=== PATIENT | male | born 1975 | race Caucasian/White ===

== ENCOUNTER 2021-09-02 01:49 | Emergency (ER) | payer BC, SELFPAY ==
[2021-09-02 03:28] LABS: #Eosinphils 0.2 thou/uL (0.0-0.7); #Lymphocytes 1.2 thou/uL (1.20-3.40); #Monocytes 0.5 thou/uL (0.11-0.59); #Neutrophils 3.4 thou/uL (1.40-6.50); %Basophils 0.6 % (0.0-1.0); %Eosinophils 3.3 % (0.0-10.0); %Lymphocytes 22.4 % (21.0-51.0); %Neutrophils 63.6 % (42.0-75.0); Hemoglobin 12.3 g/dL (14.0-18.0); Mean Corpuscular HGB CONC 34.2 g/dL (32.0-36.0); Mean Corpuscular Hemoglobin 29.8 pg (27.0-31.0); Mean Corpuscular Volume 87.2 fL (78.0-98.0); Mean Platelet Volume 8.8 fL (7.4-10.4); Platelet Count 340 thou/uL (130-400); Platelet Morphology Comment Appears Adequate; RBC Distribution Width 15.7 % (11.5-14.5); RBC Morphology Normal; Red Blood Cell (RBC) Count 4.11 mill/uL (4.70-6.10); White Blood Cell (WBC) Count 5.3 thou/uL (4.8-10.8)
[2021-09-02] MEDS ORDERED: Ketorolac Tromethamine 30 MG/ML VIAL ONE (05:29)
[2021-09-02 07:51] LABS: ALT (SGPT) 46 U/L (8-55); AST (SGOT) 33 U/L (5-34); Albumin 3.6 g/dL (3.5-5.0); Alkaline Phosphatase 69 U/L (40-110); Anion Gap 16 mmol/L (10-20); BUN (Urea Nitrogen) 14 mg/dL (8.9-20.6); Bilirubin, Total 0.2 mg/dL (0.2-1.2); Calc. Creatinine Clearance 0 mL/min (70-130); Calcium 8.7 mg/dL (7.8-10.44); Carbon Dioxide 20 mmol/L (22-29); Chloride 98 mmol/L (98-107); Globulin 3.6 g/dL (2.4-3.5); Glucose 300 mg/dL (70-105); Lipase 31 U/L (8-78); Potassium 4.6 mmol/L (3.5-5.1); Protein, Total 7.2 g/dL (6.0-8.3); Sodium 129 mmol/L (136-145)
[2021-09-02 17:07] LABS: SARS-CoV-2 PCR by NAA DETECTED (NotDetected)
== END 2021-09-02 08:31 | disposition home or self-care (01) ==
LOC: ERS 01:49
DX: U07.1 COVID-19 (principal); E11.65 Type 2 diabetes mellitus with hyperglycemia; I10 Essential (primary) hypertension; E78.5 Hyperlipidemia, unspecified
CPT/HCPCS: 36415; 36416; 71045; 80053; 83690; 84484; 85025; 93005; 96374; J1885; U0003; U0005

== ENCOUNTER 2021-09-08 12:53 | Emergency (ER) | payer SELFPAY ==
[2021-09-08 16:16] LABS: #Lymphocytes 0.9 thou/uL (1.20-3.40); #Monocytes 0.4 thou/uL (0.11-0.59); #Neutrophils 5.4 thou/uL (1.40-6.50); %Basophils 0.4 % (0.0-1.0); %Eosinophils 0.4 % (0.0-10.0); %Lymphocytes 12.8 % (21.0-51.0); %Monocytes 5.3 % (0.0-10.0); %Neutrophils 81.1 % (42.0-75.0); Hemoglobin 13.3 g/dL (14.0-18.0); Mean Corpuscular HGB CONC 33.8 g/dL (32.0-36.0); Mean Corpuscular Hemoglobin 29.4 pg (27.0-31.0); Mean Platelet Volume 6.6 fL (7.4-10.4); Platelet Count 260 thou/uL (130-400); RBC Distribution Width 13.9 % (11.5-14.5); Red Blood Cell (RBC) Count 4.52 mill/uL (4.70-6.10); White Blood Cell (WBC) Count 6.6 thou/uL (4.8-10.8)
[2021-09-08 16:48] LABS: ALT (SGPT) 39 U/L (8-55); AST (SGOT) 30 U/L (5-34); Albumin 3.9 g/dL (3.5-5.0); Alkaline Phosphatase 81 U/L (40-110); Anion Gap 17 mmol/L (10-20); BUN (Urea Nitrogen) 22 mg/dL (8.9-20.6); Bilirubin, Total 0.4 mg/dL (0.2-1.2); Calc. Creatinine Clearance 0 mL/min (70-130); Carbon Dioxide 22 mmol/L (22-29); Chloride 97 mmol/L (98-107); Globulin 3.3 g/dL (2.4-3.5); Glucose 302 mg/dL (70-105); Potassium 4.3 mmol/L (3.5-5.1); Protein, Total 7.2 g/dL (6.0-8.3); Sodium 132 mmol/L (136-145)
== END 2021-09-08 19:28 | disposition home or self-care (01) ==
LOC: ERS 12:53
DX: U07.1 COVID-19 (principal); J12.82 Pneumonia due to coronavirus disease 2019; E11.9 Type 2 diabetes mellitus without complications; I10 Essential (primary) hypertension; E78.5 Hyperlipidemia, unspecified; Z79.84 Long term (current) use of oral hypoglycemic drugs; Z79.899 Other long term (current) drug therapy
CPT/HCPCS: 36415; 71045; 80053; 84484; 85025; 85379; 93005

== ENCOUNTER 2022-04-13 20:15 | Inpatient (IN) | payer BC, OTHER ==
[~2022-04-13 20:15] MED LIST: Iopamidol-370 76% 500 ML 1 ML ONE
[2022-04-13 20:42] LABS: #Eosinphils 0.3 thou/uL (0.0-0.7); #Lymphocytes 0.7 thou/uL (1.20-3.40); #Monocytes 0.7 thou/uL (0.11-0.59); #Neutrophils 8.1 thou/uL (1.40-6.50); %Basophils 0.3 % (0.0-1.0); %Eosinophils 3.2 % (0.0-10.0); %Lymphocytes 7.2 % (21.0-51.0); %Monocytes 7.2 % (0.0-10.0); %Neutrophils 82.3 % (42.0-75.0); Hemoglobin 13.3 g/dL (14.0-18.0); Mean Corpuscular HGB CONC 34.5 g/dL (32.0-36.0); Mean Corpuscular Hemoglobin 28.9 pg (27.0-31.0); Mean Corpuscular Volume 83.8 fL (78.0-98.0); Mean Platelet Volume 7.2 fL (7.4-10.4); Platelet Count 268 thou/uL (130-400); RBC Distribution Width 13.4 % (11.5-14.5); Red Blood Cell (RBC) Count 4.61 mill/uL (4.70-6.10); White Blood Cell (WBC) Count 9.8 thou/uL (4.8-10.8)
[2022-04-13] MEDS ORDERED: Ketorolac Tromethamine 30 MG/ML VIAL ONE (20:46)
[2022-04-13] MEDS ORDERED: PROVENTIL INHALER 6.7 G (200 INHALATIONS) ONE (21:00)
[2022-04-13] MEDS ORDERED: Albuterol 200 PUFF (6.7GM INHALER) ONE (21:01)
[2022-04-13 21:04] LABS: ALT (SGPT) 29 U/L (8-55); AST (SGOT) 25 U/L (5-34); Albumin 4.3 g/dL (3.5-5.0); Alkaline Phosphatase 85 U/L (40-110); Anion Gap 16 mmol/L (10-20); BUN (Urea Nitrogen) 12 mg/dL (8.9-20.6); Bilirubin, Total 0.4 mg/dL (0.2-1.2); Calc. Creatinine Clearance 0 mL/min (70-130); Calcium 9.5 mg/dL (7.8-10.44); Carbon Dioxide 22 mmol/L (22-29); Chloride 101 mmol/L (98-107); Estimated GFR 101; Globulin 3.2 g/dL (2.4-3.5); Glucose 205 mg/dL (70-105); Potassium 4.1 mmol/L (3.5-5.1); Protein, Total 7.5 g/dL (6.0-8.3); Sodium 135 mmol/L (136-145)
[2022-04-13] MEDS ORDERED: Enoxaparin Sodium 30 MG/0.3 ML SYRINGE ONE (22:55)
[2022-04-13] MEDS ORDERED: Benzonatate 100 MG CAP ONE ×2 (22:55→22:58)
[2022-04-13] MEDS ORDERED: Enoxaparin Sodium 80 MG/0.8 ML SYRINGE ONE (22:55)
[2022-04-13] MEDS ORDERED: Dextrose 50% Abboject 50 ML SYRINGE SLOW IVP PRN (23:31)
[2022-04-13] MEDS ORDERED: Guaifenesin DM 100-10/5 ML UDCUP PO PRN (23:31)
[2022-04-13] MEDS ORDERED: Dextrose 5% in Water 1,000 ML IV PRN (23:31)
[2022-04-13 23:40] LABS: Lactic Acid 1.6 mmol/L (0.5-2.2)
[2022-04-13] MEDS ORDERED: Benzonatate 100 MG CAP PO PRN (23:42)
[2022-04-13] MEDS ORDERED: Azithromycin 500 MG in Sodium Chloride 0.9% 250 ML 250 ML IVPB SCH (23:45)
[2022-04-14 00:27] VITALS: BMI 33.3
[2022-04-14] MEDS ORDERED: Dexamethasone 10 MG/ML VIAL SLOW IVP SCH (00:30)
[2022-04-14] MEDS ORDERED: Zinc Sulfate 220 MG CAP PO SCH (00:30)
[2022-04-14] MEDS ORDERED: Pantoprazole 40 MG VIAL IVP SCH (00:30)
[2022-04-14] MEDS ORDERED: Cholecalciferol (Vitamin D3) 400 UNITS TAB PO SCH (00:30)
[2022-04-14] MEDS ORDERED: Ascorbic Acid 500 mg Chewable Tablet PO SCH (00:30)
[2022-04-14 00:32] LABS: SARS-CoV-2 NAA Rapid Test DETECTED (NotDetected)
[2022-04-14] MEDS: cefTRIAXone\\ROCEPHIN 1 GM in Sodium Chloride 0.9% 100 ML IVPB SCH (00:46)
[2022-04-14] MEDS ORDERED: hydrALAZINE 20 MG/ML VIAL SLOW IVP PRN (01:07)
[2022-04-14] MEDS ORDERED: VANCOMYCIN 2 GRAM/500 ML BAG 2 GM in Premix Bag 1 BAG IVPB SCH (02:00)
[2022-04-14] MEDS: Albuterol 200 PUFF (6.7GM INHALER) INH SCH ×6 (02:33→18:53)
[2022-04-14] MEDS: Acetaminophen 325 MG TAB PO PRN ×2 (03:45→08:44)
[2022-04-14 04:42] LABS: #Eosinphils 0.1 thou/uL (0.0-0.7); #Lymphocytes 0.8 thou/uL (1.20-3.40); #Monocytes 0.2 thou/uL (0.11-0.59); #Neutrophils 6.1 thou/uL (1.40-6.50); %Basophils 0.6 % (0.0-1.0); %Eosinophils 1.2 % (0.0-10.0); %Lymphocytes 11.4 % (21.0-51.0); %Monocytes 3.1 % (0.0-10.0); %Neutrophils 83.7 % (42.0-75.0); Hemoglobin 12.3 g/dL (14.0-18.0); Mean Corpuscular Hemoglobin 29.8 pg (27.0-31.0); Mean Corpuscular Volume 85.1 fL (78.0-98.0); Mean Platelet Volume 7.6 fL (7.4-10.4); Platelet Count 246 thou/uL (130-400); RBC Distribution Width 13.6 % (11.5-14.5); Red Blood Cell (RBC) Count 4.13 mill/uL (4.70-6.10); White Blood Cell (WBC) Count 7.3 thou/uL (4.8-10.8)
[2022-04-14 05:38] LABS: Hemoglobin A1c 9.6 % (4.0-6.0)
[2022-04-14 05:45] LABS: ALT (SGPT) 26 U/L (8-55); AST (SGOT) 18 U/L (5-34); Albumin 3.8 g/dL (3.5-5.0); Alkaline Phosphatase 77 U/L (40-110); Anion Gap 16 mmol/L (10-20); BUN (Urea Nitrogen) 15 mg/dL (8.9-20.6); Bilirubin, Total 0.2 mg/dL (0.2-1.2); Calc. Creatinine Clearance 143 mL/min (70-130); Calcium 9.1 mg/dL (7.8-10.44); Carbon Dioxide 20 mmol/L (22-29); Cardiac Risk 10.3 (Less than 4.5); Chloride 101 mmol/L (98-107); Cholesterol 237 mg/dl (< 200 Desired); Estimated GFR 92; Globulin 3.8 g/dL (2.4-3.5); Glucose 416 mg/dL (70-105); HDL Cholesterol 23 mg/dL (>60 Neg Risk); Potassium 4.4 mmol/L (3.5-5.1); Protein, Total 7.6 g/dL (6.0-8.3); Sodium 133 mmol/L (136-145)
[2022-04-14 05:53] LABS: Triglycerides 1709 mg/dL (Less than 150)
[2022-04-14] MEDS: HumaLOG 300 UNITS/3 ML VIAL SC PRN ×3 (06:32→21:21)
[2022-04-14] MEDS: Ascorbic Acid 500 mg Chewable Tablet PO SCH (08:28)
[2022-04-14] MEDS: Cholecalciferol (Vitamin D3) 400 UNITS TAB PO SCH (08:28)
[2022-04-14] MEDS: Zinc Sulfate 220 MG CAP PO SCH (08:29)
[2022-04-14] MEDS: Dexamethasone 10 MG/ML VIAL SLOW IVP SCH (08:29)
[2022-04-14] MEDS: Pantoprazole 40 MG VIAL IVP SCH (08:29)
[2022-04-14] MEDS ORDERED: Insulin Glargine 30 UNITS/0.3 ML VIAL SC SCH (10:15)
[2022-04-14] MEDS: VANCOMYCIN 1.75 GM/500 ML BAG 1.75 GM in Premix Bag 1 BAG IVPB SCH ×2 (10:21→18:10)
[2022-04-14] MEDS: Doxycycline 100 MG in Sodium Chloride 0.9% 100 ML IVPB SCH ×2 (10:22→23:35)
[2022-04-14] MEDS: HumaLOG 300 UNITS/3 ML VIAL SC SCH (16:45)
[2022-04-14] MEDS: Insulin Glargine 30 UNITS/0.3 ML VIAL SC SCH (21:21)
[2022-04-14] MEDS: Rosuvastatin 20 MG TAB PO SCH (21:21)
[2022-04-15] MEDS: cefTRIAXone\\ROCEPHIN 1 GM in Sodium Chloride 0.9% 100 ML IVPB SCH ×2 (00:41→23:39)
[2022-04-15 01:11] LABS: Vancomycin, Trough 17.1 ug/mL
[2022-04-15] MEDS ORDERED: HumaLOG 300 UNITS/3 ML VIAL SC SCH (01:15)
[2022-04-15] MEDS: VANCOMYCIN 1.75 GM/500 ML BAG 1.75 GM in Premix Bag 1 BAG IVPB SCH ×3 (01:38→16:53)
[2022-04-15] MEDS: Albuterol 200 PUFF (6.7GM INHALER) INH SCH ×6 (03:23→23:39)
[2022-04-15] MEDS: HumaLOG 300 UNITS/3 ML VIAL SC PRN ×2 (05:44→20:42)
[2022-04-15] MEDS: Amlodipine 10 MG TAB PO SCH (09:01)
[2022-04-15] MEDS: Carvedilol 25 MG TAB PO SCH (09:01)
[2022-04-15] MEDS: Dexamethasone 10 MG/ML VIAL SLOW IVP SCH (09:01)
[2022-04-15] MEDS: Losartan 25 MG TAB PO SCH (09:01)
[2022-04-15] MEDS: Cholecalciferol (Vitamin D3) 400 UNITS TAB PO SCH (09:01)
[2022-04-15] MEDS: Ascorbic Acid 500 mg Chewable Tablet PO SCH (09:01)
[2022-04-15] MEDS: Zinc Sulfate 220 MG CAP PO SCH (09:02)
[2022-04-15] MEDS: Pantoprazole 40 MG VIAL IVP SCH (09:17)
[2022-04-15] MEDS: HumaLOG 300 UNITS/3 ML VIAL SC SCH ×3 (09:17→16:51)
[2022-04-15] MEDS: Insulin Glargine 30 UNITS/0.3 ML VIAL SC SCH ×2 (10:16→20:41)
[2022-04-15] MEDS: Doxycycline 100 MG in Sodium Chloride 0.9% 100 ML IVPB SCH (11:18)
[2022-04-15] MEDS: Rosuvastatin 20 MG TAB PO SCH (20:42)
[2022-04-16 01:50] LABS: Vancomycin, Trough 17.2 ug/mL
[2022-04-16] MEDS ORDERED: Doxycycline 100 MG in Sodium Chloride 0.9% 100 ML IVPB SCH (02:00)
[2022-04-16] MEDS: VANCOMYCIN 1.75 GM/500 ML BAG 1.75 GM in Premix Bag 1 BAG IVPB SCH ×3 (03:52→12:13)
[2022-04-16] MEDS: Albuterol 200 PUFF (6.7GM INHALER) INH SCH ×3 (03:54→10:20)
[2022-04-16] MEDS: HumaLOG 300 UNITS/3 ML VIAL SC PRN ×2 (06:22→12:16)
[2022-04-16] MEDS ORDERED: Ondansetron PF 4 MG/2 ML Vial IVP PRN (08:54)
[2022-04-16] MEDS ORDERED: Insulin Glargine 30 UNITS/0.3 ML VIAL SC SCH (09:00)
[2022-04-16] MEDS: Carvedilol 25 MG TAB PO SCH (09:59)
[2022-04-16] MEDS: Losartan 25 MG TAB PO SCH (09:59)
[2022-04-16] MEDS: Ascorbic Acid 500 mg Chewable Tablet PO SCH (10:00)
[2022-04-16] MEDS: Amlodipine 10 MG TAB PO SCH (10:00)
[2022-04-16] MEDS: Dexamethasone 10 MG/ML VIAL SLOW IVP SCH (10:00)
[2022-04-16] MEDS: Zinc Sulfate 220 MG CAP PO SCH (10:00)
[2022-04-16] MEDS: Cholecalciferol (Vitamin D3) 400 UNITS TAB PO SCH (10:00)
[2022-04-16] MEDS: Pantoprazole 40 MG VIAL IVP SCH (10:01)
[2022-04-16] MEDS: HumaLOG 300 UNITS/3 ML VIAL SC SCH ×2 (10:02→12:15)
[2022-04-16 12:24] VITALS: BP 148/83; TEMP 98.3
== END 2022-04-16 13:14 | disposition home or self-care (01) | DRG 871 ==
LOC: ERS 20:15 → 2SW 22:43 → ERS 23:31 → OBSVTOIN 04-14 12:38
PROVIDERS: ADMIT Internal Medicine; ATTEND Internal Medicine
PROC: 3E0333Z Introduction of Anti-inflammatory into Peripheral Vein, Percutaneous Approach (ICD-10-PCS; principal; 2022-04-14)
PROC: 8E0ZXY6 Isolation (ICD-10-PCS; 2022-04-14)
DX: A41.9 Sepsis, unspecified organism (principal); U07.1 COVID-19; J15.9 Unspecified bacterial pneumonia; J96.01 Acute respiratory failure with hypoxia; E87.1 Hypo-osmolality and hyponatremia; J98.11 Atelectasis; I10 Essential (primary) hypertension; E78.5 Hyperlipidemia, unspecified; E11.65 Type 2 diabetes mellitus with hyperglycemia; F41.9 Anxiety disorder, unspecified; K76.0 Fatty (change of) liver, not elsewhere classified; Z88.1 Allergy status to other antibiotic agents; Z91.013 Allergy to seafood
CPT/HCPCS: 36415; 36416; 71045; 71275; 80053; 80061; 80202; 83036; 83605; 83880; 84484; 85025; 87040; 93005; 96361; 96365; 96372; 96374; 96375; 96376; C9113; G0378; J0696; J1100; J1650; J1815; J1885; J2405; J3370; J3490; Q9967; U0002

== ENCOUNTER 2022-04-29 12:52 | Emergency (ER) | payer BC ==
[2022-04-29 13:33] LABS: #Basophils 0.1 thou/uL (0.0-0.2); #Eosinphils 0.7 thou/uL (0.0-0.7); #Lymphocytes 2.8 thou/uL (1.20-3.40); #Monocytes 0.7 thou/uL (0.11-0.59); %Basophils 0.5 % (0.0-1.0); %Eosinophils 5.4 % (0.0-10.0); %Lymphocytes 20.8 % (21.0-51.0); %Monocytes 5.3 % (0.0-10.0); Hemoglobin 13.6 g/dL (14.0-18.0); Mean Corpuscular HGB CONC 34.4 g/dL (32.0-36.0); Mean Corpuscular Hemoglobin 29.6 pg (27.0-31.0); Mean Platelet Volume 6.9 fL (7.4-10.4); Platelet Count 278 thou/uL (130-400); RBC Distribution Width 13.7 % (11.5-14.5); Red Blood Cell (RBC) Count 4.59 mill/uL (4.70-6.10); White Blood Cell (WBC) Count 13.3 thou/uL (4.8-10.8)
[2022-04-29 13:56] LABS: ALT (SGPT) 30 U/L (8-55); AST (SGOT) 13 U/L (5-34); Albumin 3.8 g/dL (3.5-5.0); Alkaline Phosphatase 70 U/L (40-110); Anion Gap 16 mmol/L (10-20); BUN (Urea Nitrogen) 27 mg/dL (8.9-20.6); Bilirubin, Total 0.4 mg/dL (0.2-1.2); Calc. Creatinine Clearance 0 mL/min (70-130); Calcium 8.9 mg/dL (7.8-10.44); Carbon Dioxide 23 mmol/L (22-29); Chloride 98 mmol/L (98-107); Estimated GFR 86; Globulin 2.8 g/dL (2.4-3.5); Glucose 380 mg/dL (70-105); Potassium 4.3 mmol/L (3.5-5.1); Protein, Total 6.6 g/dL (6.0-8.3); Sodium 133 mmol/L (136-145)
[2022-04-29] MEDS ORDERED: Iopamidol-370 76% 500 ML 1 ML ONE (15:26)
[2022-04-29] MEDS ORDERED: cefTRIAXone\\ROCEPHIN 1 GM VIAL ONE (16:39)
[2022-04-29 17:04] LABS: Lactic Acid 2.6 mmol/L (0.5-2.2)
== END 2022-04-29 17:49 | disposition home or self-care (01) ==
LOC: ERS 12:52
DX: J18.9 Pneumonia, unspecified organism (principal); I10 Essential (primary) hypertension; E78.5 Hyperlipidemia, unspecified; E11.9 Type 2 diabetes mellitus without complications
CPT/HCPCS: 36415; 71046; 71275; 80053; 83605; 83880; 84484; 85025; 96361; 96374; J0696; J7620; Q9967

== ENCOUNTER 2022-06-16 19:18 | Observation (INO) | payer BC, SELFPAY ==
[2022-06-16 19:42] LABS: #Basophils 0.1 thou/uL (0.0-0.2); #Eosinphils 0.4 thou/uL (0.0-0.7); #Lymphocytes 2.8 thou/uL (1.20-3.40); #Monocytes 0.6 thou/uL (0.11-0.59); #Neutrophils 5.7 thou/uL (1.40-6.50); %Basophils 1.4 % (0.0-1.0); %Eosinophils 3.8 % (0.0-10.0); %Lymphocytes 28.7 % (21.0-51.0); %Monocytes 6.5 % (0.0-10.0); %Neutrophils 59.6 % (42.0-75.0); Hemoglobin 12.8 g/dL (14.0-18.0); Mean Corpuscular HGB CONC 34.8 g/dL (32.0-36.0); Mean Corpuscular Hemoglobin 28.8 pg (27.0-31.0); Mean Corpuscular Volume 82.9 fL (78.0-98.0); Mean Platelet Volume 7.6 fL (7.4-10.4); Platelet Count 273 thou/uL (130-400); RBC Distribution Width 14.2 % (11.5-14.5); Red Blood Cell (RBC) Count 4.43 mill/uL (4.70-6.10); White Blood Cell (WBC) Count 9.6 thou/uL (4.8-10.8)
[2022-06-16 19:50] LABS: INR-International Normal Ratio 0.9; PTT 30.8 sec (22.9-36.1); Prothrombin Time 12.2 sec (12.0-14.7)
[2022-06-16] MEDS ORDERED: Acetaminophen 500 MG TAB ONE (20:17)
[2022-06-16 20:45] LABS: ALT (SGPT) 28 U/L (8-55); AST (SGOT) 26 U/L (5-34); Albumin 3.9 g/dL (3.5-5.0); Alkaline Phosphatase 82 U/L (40-110); Anion Gap 19 mmol/L (10-20); BUN (Urea Nitrogen) 15 mg/dL (8.9-20.6); Bilirubin, Total 0.3 mg/dL (0.2-1.2); CK (CPK) 118 U/L (30-200); Calc. Creatinine Clearance 0 mL/min (70-130); Calcium 9.4 mg/dL (7.8-10.44); Carbon Dioxide 17 mmol/L (22-29); Chloride 100 mmol/L (98-107); Estimated GFR 98; Globulin 4.1 g/dL (2.4-3.5); Glucose 221 mg/dL (70-105); Sodium 132 mmol/L (136-145)
[2022-06-16] MEDS ORDERED: Aspirin Chewable 81 MG TAB ONE (21:27)
[2022-06-16 23:33] VITALS: BMI 34.9
[2022-06-17] MEDS: traMADol HCl 50 MG TAB PO PRN ×2 (01:16→07:59)
[2022-06-17] MEDS ORDERED: Ondansetron PF 4 MG/2 ML Vial IVP PRN (02:02)
[2022-06-17] MEDS ORDERED: Dextrose 5% in Water 1,000 ML IV PRN (02:02)
[2022-06-17] MEDS ORDERED: hydrALAZINE 20 MG/ML VIAL SLOW IVP PRN (02:02)
[2022-06-17] MEDS ORDERED: Dextrose 50% Abboject 50 ML SYRINGE SLOW IVP PRN (02:02)
[2022-06-17] MEDS ORDERED: Acetaminophen 650 MG Suppository PR PRN (02:02)
[2022-06-17] MEDS ORDERED: HumaLOG 300 UNITS/3 ML VIAL SC PRN (02:02)
[2022-06-17] MEDS ORDERED: Acetaminophen 325 MG TAB PO PRN (02:02)
[2022-06-17] MEDS ORDERED: Ondansetron ODT 4 MG TAB PO PRN (02:02)
[2022-06-17 05:51] LABS: Anion Gap 21 mmol/L (10-20); BUN (Urea Nitrogen) 13 mg/dL (8.9-20.6); Calc. Creatinine Clearance 193 mL/min (70-130); Calcium 9.1 mg/dL (7.8-10.44); Carbon Dioxide 15 mmol/L (22-29); Cardiac Risk 19.9 (Less than 4.5); Chloride 101 mmol/L (98-107); Cholesterol 497 mg/dl (< 200 Desired); Estimated GFR 111; Glucose 182 mg/dL (70-105); HDL Cholesterol 25 mg/dL (>60 Neg Risk); Potassium 4.6 mmol/L (3.5-5.1); Sodium 132 mmol/L (136-145)
[2022-06-17] MEDS: HumaLOG 300 UNITS/3 ML VIAL SC PRN ×2 (05:58→12:38)
[2022-06-17 06:25] LABS: #Basophils 0.1 thou/uL (0.0-0.2); #Eosinphils 0.3 thou/uL (0.0-0.7); #Lymphocytes 1.9 thou/uL (1.20-3.40); #Monocytes 0.5 thou/uL (0.11-0.59); #Neutrophils 3.6 thou/uL (1.40-6.50); %Basophils 0.8 % (0.0-1.0); %Eosinophils 4.9 % (0.0-10.0); %Lymphocytes 29.5 % (21.0-51.0); %Neutrophils 56.7 % (42.0-75.0); Hemoglobin 11.8 g/dL (14.0-18.0); Mean Corpuscular HGB CONC 33.8 g/dL (32.0-36.0); Mean Corpuscular Hemoglobin 28.2 pg (27.0-31.0); Mean Corpuscular Volume 83.4 fL (78.0-98.0); Mean Platelet Volume 7.3 fL (7.4-10.4); Platelet Count 236 thou/uL (130-400); RBC Distribution Width 14.2 % (11.5-14.5); Red Blood Cell (RBC) Count 4.18 mill/uL (4.70-6.10); White Blood Cell (WBC) Count 6.3 thou/uL (4.8-10.8)
[2022-06-17 06:35] LABS: Lactic Acid 1.4 mmol/L (0.5-2.2)
[2022-06-17] MEDS ORDERED: Aspirin 81 mg Enteric Coated Tablet PO SCH (09:00)
[2022-06-17] MEDS ORDERED: predniSONE 20 MG TAB PO SCH (12:30)
[2022-06-17 12:48] VITALS: TEMP 98.4
[2022-06-17 16:23] VITALS: BP 181/108
== END 2022-06-17 14:18 | disposition home or self-care (01) ==
LOC: ERS 19:18 → NEURO 21:43
PROVIDERS: ADMIT Internal Medicine; ATTEND Internal Medicine
DX: G51.0 Bell's palsy (principal); E11.9 Type 2 diabetes mellitus without complications; I10 Essential (primary) hypertension; E87.1 Hypo-osmolality and hyponatremia; E78.00 Pure hypercholesterolemia, unspecified; J32.8 Other chronic sinusitis; E66.9 Obesity, unspecified; Z68.35 Body mass index [BMI] 35.0-35.9, adult; Z86.16 Personal history of COVID-19; Z79.4 Long term (current) use of insulin; Z79.899 Other long term (current) drug therapy; Z88.1 Allergy status to other antibiotic agents; Z91.013 Allergy to seafood; Z20.822 Contact with and (suspected) exposure to COVID-19
CPT/HCPCS: 36415; 36416; 70450; 70551; 71045; 80048; 80053; 80061; 82010; 82550; 83605; 84484; 85025; 85610; 85730; 93005; G0378; J1815; J7512; U0003; U0005

== ENCOUNTER 2022-08-10 17:54 | Emergency (ER) | payer BC, SELFPAY ==
[2022-08-10] MEDS ORDERED: Ketorolac Tromethamine 30 MG/ML VIAL ONE (18:17)
[2022-08-10 18:25] LABS: #Eosinphils 0.2 thou/uL (0.0-0.7); #Monocytes 0.4 thou/uL (0.11-0.59); #Neutrophils 4.8 thou/uL (1.40-6.50); %Basophils 0.7 % (0.0-1.0); %Eosinophils 2.6 % (0.0-10.0); %Lymphocytes 26.9 % (21.0-51.0); %Monocytes 5.7 % (0.0-10.0); %Neutrophils 64.2 % (42.0-75.0); Hemoglobin 13.6 g/dL (14.0-18.0); Mean Corpuscular HGB CONC 35.2 g/dL (32.0-36.0); Mean Corpuscular Hemoglobin 29.5 pg (27.0-31.0); Mean Corpuscular Volume 83.8 fl (78.0-98.0); Mean Platelet Volume 7.5 fL (7.4-10.4); Platelet Count 289 10x3/uL (130-400); Red Blood Cell (RBC) Count 4.62 mill/uL (4.70-6.10); White Blood Cell (WBC) Count 7.5 10x3/uL (4.8-10.8)
[2022-08-10 18:54] LABS: ALT (SGPT) 27 U/L (8-55); AST (SGOT) 18 U/L (5-34); Albumin 4.3 g/dL (3.5-5.0); Alkaline Phosphatase 89 U/L (40-110); Anion Gap 14 mmol/L (10-20); BUN (Urea Nitrogen) 15 mg/dL (8.9-20.6); Bilirubin, Total 0.3 mg/dL (0.2-1.2); Calc. Creatinine Clearance 0 mL/min (70-130); Calcium 9.8 mg/dL (7.8-10.44); Carbon Dioxide 21 mmol/L (22-29); Chloride 101 mmol/L (98-107); Estimated GFR 105; Globulin 3.4 g/dL (2.4-3.5); Glucose 299 mg/dL (70-105); Lipase 53 U/L (8-78); Protein, Total 7.7 g/dL (6.0-8.3); Sodium 132 mmol/L (136-145)
== END 2022-08-10 22:35 | disposition home or self-care (01) ==
LOC: ERS 17:54
DX: R06.00 Dyspnea, unspecified (principal); R10.12 Left upper quadrant pain; E11.9 Type 2 diabetes mellitus without complications; I10 Essential (primary) hypertension; E78.5 Hyperlipidemia, unspecified; Z79.899 Other long term (current) drug therapy; Z79.4 Long term (current) use of insulin
CPT/HCPCS: 36415; 71045; 71275; 74176; 80053; 83690; 83880; 84484; 85025; 85379; 93005; 96361; 96374; J1885; Q9967

== ENCOUNTER 2023-02-17 11:37 | Emergency (ER) | payer BC ==
[~2023-02-17 11:37] MED LIST changes: -Iopamidol-370 76% 500 ML 1 ML ONE; +Iopamidol-370 76% 500 ML MDV (1 ML CHARGE) ONE
[2023-02-17 12:14] LABS: #Basophils 0.1 thou/uL (0.0-0.2); #Eosinphils 0.3 thou/uL (0.0-0.7); #Monocytes 0.6 thou/uL (0.11-0.59); #Neutrophils 5.5 thou/uL (1.40-6.50); %Basophils 0.8 % (0.0-1.0); %Eosinophils 3.8 % (0.0-10.0); %Lymphocytes 17.2 % (21.0-51.0); %Monocytes 7.8 % (0.0-10.0); %Neutrophils 69.6 % (42.0-75.0); Hemoglobin 13.2 g/dL (14.0-18.0); Mean Corpuscular HGB CONC 35.6 g/dL (32.0-36.0); Mean Corpuscular Hemoglobin 30.3 pg (27.0-31.0); Mean Corpuscular Volume 85.1 fl (78.0-98.0); Mean Platelet Volume 9.6 fL (7.4-10.4); Platelet Count 283 10x3/uL (130-400); RBC Distribution Width 14.4 % (11.5-14.5); Red Blood Cell (RBC) Count 4.36 mill/uL (4.70-6.10); White Blood Cell (WBC) Count 7.8 10x3/uL (4.8-10.8)
[2023-02-17 13:01] LABS: AST (SGOT) 19 U/L (5-34); Anion Gap 16 mmol/L (10-20); CK (CPK) 140 U/L (30-200); Chloride 100 mmol/L (98-107); Potassium 4.2 mmol/L (3.5-5.1); Protein, Total 8.3 g/dL (6.0-8.3); Sodium 132 mmol/L (136-145)
[2023-02-17 13:03] LABS: ALT (SGPT) 30 U/L (8-55); Albumin 3.9 g/dL (3.5-5.0); Alkaline Phosphatase 94 U/L (40-110); BUN (Urea Nitrogen) 19 mg/dL (8.9-20.6); Bilirubin, Total 0.2 mg/dL (0.2-1.2); Calc. Creatinine Clearance 0 mL/min (70-130); Calcium 9.4 mg/dL (7.8-10.44); Carbon Dioxide 10 mmol/L (22-29); Estimated GFR 97; Globulin 4.5 g/dL (2.4-3.5); Glucose 276 mg/dL (70-105); Lipase 48 U/L (8-78)
[2023-02-17] MEDS ORDERED: Ketorolac Tromethamine 30 MG/ML VIAL ONE (14:33)
== END 2023-02-17 14:39 | disposition home or self-care (01) ==
LOC: ERS 11:37
DX: R07.9 Chest pain, unspecified (principal); J18.9 Pneumonia, unspecified organism; E11.9 Type 2 diabetes mellitus without complications; I10 Essential (primary) hypertension; E78.5 Hyperlipidemia, unspecified; Z79.4 Long term (current) use of insulin; Z79.899 Other long term (current) drug therapy
CPT/HCPCS: 36415; 71045; 71275; 80053; 82550; 83690; 83880; 84484; 85025; 93005; 96374; J1885; Q9967

== ENCOUNTER 2024-09-18 15:55 | Outpatient (CLI) | payer BC, OTHER | END 2024-09-18 15:56 | disposition home or self-care (01) | LOC: SCSRAD 15:55 | PROVIDERS: ATTEND Family Medicine | DX: M25.511 Pain in right shoulder (principal) ==

== ENCOUNTER 2025-06-09 20:17 | Inpatient (IN) | payer OTHER ==
[2025-06-09] MEDS ORDERED: cefTRIAXone (ROCEPHIN) 2 GM VIAL ONE (20:34)
[2025-06-09 20:39] LABS: #Basophils 0.08 10x3/uL (0.0-0.2); #Eosinophils 0.24 10x3/uL (0.0-0.7); #Monocytes 0.59 10x3/uL (0.11-0.59); #Neutrophils 10.05 10x3/uL (1.40-6.50); %Basophils 0.6 % (0.0-1.0); %Eosinophils 1.9 % (0.0-10.0); %Lymphocytes 12.9 % (21.0-51.0); %Monocytes 4.7 % (0.0-10.0); %Neutrophils 79.3 % (42.0-75.0); Hematocrit 38.0 % (42.0-52.0); Hemoglobin 12.2 g/dL (14.0-18.0); Mean Corpuscular Hemoglobin 27.7 pg (27.0-31.0); Mean Corpuscular Volume 86.2 fL (78.0-98.0); Platelet Count 438 10x3/uL (130-400); Red Blood Cell (RBC) Count 4.41 mill/uL (4.70-6.10); White Blood Cell (WBC) Count 12.66 10x3/uL (4.8-10.8)
[2025-06-09 20:43] LABS: Actual Bicarbonate (HCO3v) 22.0 mEq/L (22-28); Base Excess -2.2 mEq/L (-2.0 to +3.0); Calcium, Ionized (venous) 1.22 mmol/L (1.16-1.32); Chloride (VBG) 103 mmol/L (98-106); Hematocrit-VBG 39 % (42.0-52.0); Hemoglobin (Hb) 13.3 g/dL (13.1-17.2); Potassium (VBG) 4.03 mmol/L (3.70-5.30); Sodium 140 mmol/L (133-146)
[2025-06-09 20:57] LABS: ALT (SGPT) 67 U/L (Less than 45); AST (SGOT) 59 U/L (11-34); Albumin 3.6 g/dL (3.1-4.5); Alkaline Phosphatase 63 U/L (40-110); Anion Gap 16 mmol/L (10-20); BUN (Urea Nitrogen) 25 mg/dL (8.9-20.6); Bilirubin, Total 0.2 mg/dL (0.3-1.2); Calc. Creatinine Clearance 0 mL/min (70-130); Calcium 10.0 mg/dL (7.8-10.44); Carbon Dioxide 23 mmol/L (22-29); Chloride 105 mmol/L (98-107); Globulin 4.2 g/dL (2.4-3.5); Glucose 226 mg/dL (70-105); Potassium 4.0 mmol/L (3.5-5.1); Sodium 140 mmol/L (136-145)
[2025-06-09 21:49] LABS: Bacteria/HPF None Seen HPF (None Seen); CAUTI Indications for Culture Alt mental st,lethar; Glucose, Urine (Dipstick) >=1000 mg/dL (Negative); Leukocyte Negative Leu/uL (Negative); Protein, Urine (Dipstick) 100 mg/dL (Neg-Trace); RBC/HPF 0-3 HPF (0-3); Specific Gravity, Urine 1.018 (1.002-1.036); WBC/HPF 0-3 HPF (0-3)
[2025-06-09 21:55] LABS: Urine Culture Reflex No No
[2025-06-10] MEDS ORDERED: Furosemide 40 MG (4 mL) VIAL ONE (00:19)
[2025-06-10] MEDS ORDERED: Enoxaparin 60 MG (0.6 mL) SYRINGE ONE (00:30)
[2025-06-10] MEDS ORDERED: Aspirin Chewable 81 MG TAB ONE (00:31)
[2025-06-10] MEDS ORDERED: Bisacodyl 10 MG SUPP PR PRN (01:11)
[2025-06-10] MEDS ORDERED: Electrolyte Replacement Protocol 1 EACH FS PRN (01:15)
[2025-06-10] MEDS ORDERED: hydrALAZINE 20 MG/ML VIAL SLOW IVP PRN (01:17)
[2025-06-10] MEDS ORDERED: Dextrose 50% Abboject 50 ML SYRINGE SLOW IVP PRN (01:25)
[2025-06-10] MEDS ORDERED: Glucagon 1 MG/ML KIT IM PRN (01:25)
[2025-06-10 01:40] LABS: Cardiac Risk 8.3 (Less than 4.5); Cholesterol 215 mg/dl (< 200 Desired); HDL Cholesterol 26 mg/dL (>60 Neg Risk); LDL Cholesterol, Calculated 119 mg/dL; Magnesium 1.9 mg/dL (1.6-2.6); Triglycerides 348 mg/dL (Less than 150)
[2025-06-10] MEDS: Magnesium 2 GM/50 ML(in water) 2 GM in Premix 1 BAG IVPB SCH ×2 (04:10→13:51)
[2025-06-10] MEDS: Furosemide 40 MG (4 mL) VIAL SLOW IVP SCH ×2 (04:11→07:40)
[2025-06-10 04:37] LABS: #Basophils 0.03 10x3/uL (0.0-0.2); #Eosinophils Less than 0.03 10x3/uL (0.0-0.7); #Monocytes 0.18 10x3/uL (0.11-0.59); #Neutrophils 11.45 10x3/uL (1.40-6.50); %Basophils 0.2 % (0.0-1.0); %Eosinophils 0.0 % (0.0-10.0); %Lymphocytes 4.7 % (21.0-51.0); %Monocytes 1.5 % (0.0-10.0); %Neutrophils 93.1 % (42.0-75.0); Hematocrit 37.8 % (42.0-52.0); Hemoglobin 11.8 g/dL (14.0-18.0); Mean Corpuscular Hemoglobin 27.2 pg (27.0-31.0); Mean Corpuscular Volume 87.1 fL (78.0-98.0); Platelet Count 394 10x3/uL (130-400); Red Blood Cell (RBC) Count 4.34 mill/uL (4.70-6.10); White Blood Cell (WBC) Count 12.30 10x3/uL (4.8-10.8)
[2025-06-10 04:49] LABS: Anion Gap 17 mmol/L (10-20); BUN (Urea Nitrogen) 26 mg/dL (8.9-20.6); CK (CPK) 129 U/L (30-200); Calc. Creatinine Clearance 125 mL/min (70-130); Calcium 9.9 mg/dL (7.8-10.44); Carbon Dioxide 22 mmol/L (22-29); Chloride 103 mmol/L (98-107); Glucose 348 mg/dL (70-105); Potassium 4.4 mmol/L (3.5-5.1); Sodium 138 mmol/L (136-145)
[2025-06-10] MEDS ORDERED: Carvedilol 25 MG TAB PO SCH ×2 (07:30→08:00)
[2025-06-10] MEDS: Spironolactone 25 MG TAB PO SCH (07:39)
[2025-06-10] MEDS ORDERED: Enoxaparin 40 MG (0.4 mL) SYRINGE SC SCH (09:00)
[2025-06-10] MEDS: Losartan 25 MG TAB PO SCH (09:05)
[2025-06-10] MEDS: Isosorbide Mononitrate 30 MG ER.TAB.S PO SCH (09:06)
[2025-06-10] MEDS: DULoxetine 30 MG CAP PO SCH (09:06)
[2025-06-10] MEDS: Carvedilol 25 MG TAB PO SCH (09:07)
[2025-06-10] MEDS: Famotidine 20 MG TAB PO SCH (09:09)
[2025-06-10] MEDS: FLU (Fluarix Triv) 25-26 (6MOS UP)/PF 45 MCG/0.5 ML Syringe IM ONE (09:48)
[2025-06-10] MEDS: PNEUMOC 20-VAL CONJ-DIP CRM/PF 0.5 ML SYRINGE IM ONE (12:48)
[2025-06-10] MEDS: Insulin Glargine 30 UNITS/0.3 ML VIAL SC SCH (20:18)
[2025-06-10] MEDS: Pregabalin 25 MG CAP PO SCH (20:18)
[2025-06-10] MEDS: Melatonin 3 MG TAB PO PRN (20:18)
[2025-06-10] MEDS: Acetaminophen 325 MG TAB PO PRN (20:23)
[2025-06-11 04:38] VITALS: BMI 34.0
[2025-06-11 04:45] LABS: #Basophils 0.08 10x3/uL (0.0-0.2); #Eosinophils 0.14 10x3/uL (0.0-0.7); #Monocytes 0.76 10x3/uL (0.11-0.59); #Neutrophils 7.65 10x3/uL (1.40-6.50); %Basophils 0.7 % (0.0-1.0); %Eosinophils 1.3 % (0.0-10.0); %Lymphocytes 20.5 % (21.0-51.0); %Monocytes 7.0 % (0.0-10.0); %Neutrophils 70.0 % (42.0-75.0); Hematocrit 38.2 % (42.0-52.0); Hemoglobin 11.8 g/dL (14.0-18.0); Mean Corpuscular Hemoglobin 27.1 pg (27.0-31.0); Mean Corpuscular Volume 87.6 fL (78.0-98.0); Platelet Count 460 10x3/uL (130-400); Red Blood Cell (RBC) Count 4.36 mill/uL (4.70-6.10); White Blood Cell (WBC) Count 10.92 10x3/uL (4.8-10.8)
[2025-06-11 05:07] LABS: ALT (SGPT) 42 U/L (Less than 45); AST (SGOT) 59 U/L (11-34); Albumin 3.2 g/dL (3.1-4.5); Alkaline Phosphatase 53 U/L (40-110); Anion Gap 15 mmol/L (10-20); BUN (Urea Nitrogen) 36 mg/dL (8.9-20.6); Bilirubin, Total 0.2 mg/dL (0.3-1.2); Calc. Creatinine Clearance 108 mL/min (70-130); Calcium 9.6 mg/dL (7.8-10.44); Carbon Dioxide 29 mmol/L (22-29); Chloride 99 mmol/L (98-107); Globulin 4.1 g/dL (2.4-3.5); Glucose 279 mg/dL (70-105); Magnesium 2.7 mg/dL (1.6-2.6); Potassium 3.6 mmol/L (3.5-5.1); Sodium 139 mmol/L (136-145)
[2025-06-11] MEDS: Senokot S 8.6-50 MG TAB PO PRN (09:20)
[2025-06-11] MEDS: Spironolactone 25 MG TAB PO SCH (09:23)
[2025-06-11] MEDS: Furosemide 20 MG (2 mL) VIAL SLOW IVP SCH (15:50)
[2025-06-11] MEDS: Aspirin 81 mg Enteric Coated Tablet PO SCH (15:50)
[2025-06-12] MEDS: Furosemide 20 MG (2 mL) VIAL SLOW IVP SCH (04:41)
[2025-06-12 04:50] LABS: #Basophils 0.08 10x3/uL (0.0-0.2); #Eosinophils 0.25 10x3/uL (0.0-0.7); #Monocytes 0.68 10x3/uL (0.11-0.59); #Neutrophils 5.55 10x3/uL (1.40-6.50); %Basophils 0.9 % (0.0-1.0); %Eosinophils 2.9 % (0.0-10.0); %Lymphocytes 23.2 % (21.0-51.0); %Monocytes 7.9 % (0.0-10.0); %Neutrophils 64.8 % (42.0-75.0); Hematocrit 43.9 % (42.0-52.0); Hemoglobin 13.4 g/dL (14.0-18.0); Mean Corpuscular Hemoglobin 26.9 pg (27.0-31.0); Mean Corpuscular Volume 88.0 fL (78.0-98.0); Platelet Count 454 10x3/uL (130-400); Red Blood Cell (RBC) Count 4.99 mill/uL (4.70-6.10); White Blood Cell (WBC) Count 8.58 10x3/uL (4.8-10.8)
[2025-06-12 05:02] LABS: ALT (SGPT) 35 U/L (Less than 45); AST (SGOT) 18 U/L (11-34); Albumin 3.5 g/dL (3.1-4.5); Alkaline Phosphatase 51 U/L (40-110); Anion Gap 17 mmol/L (10-20); BUN (Urea Nitrogen) 35 mg/dL (8.9-20.6); Bilirubin, Total 0.2 mg/dL (0.3-1.2); Calc. Creatinine Clearance 109 mL/min (70-130); Calcium 10.1 mg/dL (7.8-10.44); Carbon Dioxide 24 mmol/L (22-29); Chloride 101 mmol/L (98-107); Globulin 4.2 g/dL (2.4-3.5); Glucose 225 mg/dL (70-105); Magnesium 2.7 mg/dL (1.6-2.6); Potassium 4.1 mmol/L (3.5-5.1); Sodium 138 mmol/L (136-145)
[2025-06-12] MEDS: Enoxaparin 40 MG (0.4 mL) SYRINGE SC SCH (08:55)
[2025-06-12] MEDS: Aspirin 81 mg Enteric Coated Tablet PO SCH (08:55)
[2025-06-12 11:20] VITALS: BP 129/61; TEMP 98
== END 2025-06-12 13:32 | disposition home or self-care (01) | DRG 280 ==
LOC: ERS 20:17 → ERHOLD 06-10 00:29 → IMCU/EMU 06-10 03:19 → 2NO 06-12 00:19
PROVIDERS: ADMIT Internal Medicine; ATTEND Internal Medicine
PROC: 3E0234Z Introduction of Serum, Toxoid and Vaccine into Muscle, Percutaneous Approach (ICD-10-PCS; principal; 2025-06-10)
PROC: 5A09357 Assistance with Respiratory Ventilation, Less than 24 Consecutive Hours, Continuous Positive Airway Pressure (ICD-10-PCS; 2025-06-10)
PROC: 05HY33Z Insertion of Infusion Device into Upper Vein, Percutaneous Approach (ICD-10-PCS; 2025-06-10)
DX: I11.0 Hypertensive heart disease with heart failure (principal); I50.31 Acute diastolic (congestive) heart failure; I21.A1 Myocardial infarction type 2; J96.01 Acute respiratory failure with hypoxia; N17.9 Acute kidney failure, unspecified; E78.5 Hyperlipidemia, unspecified; G51.0 Bell's palsy; I25.10 Atherosclerotic heart disease of native coronary artery without angina pectoris; F41.9 Anxiety disorder, unspecified; R74.01 Elevation of levels of liver transaminase levels; F32.A Depression, unspecified; E11.65 Type 2 diabetes mellitus with hyperglycemia; Z88.1 Allergy status to other antibiotic agents; Z91.041 Radiographic dye allergy status; Z91.013 Allergy to seafood; Z79.899 Other long term (current) drug therapy; Z79.4 Long term (current) use of insulin; Z87.01 Personal history of pneumonia (recurrent); Z86.73 Personal history of transient ischemic attack (TIA), and cerebral infarction without residual deficits; Z86.16 Personal history of COVID-19; Z23 Encounter for immunization
CPT/HCPCS: 36415; 36416; 51701; 71045; 71275; 80048; 80053; 80061; 81001; 82550; 82805; 83036; 83605; 83735; 83880; 84443; 84484; 85025; 87040; 87086; 87428; 93005; 93306; 94660; 94760; 96365; 96367; 96372; 96375; J0696; J1650; J1815; J1940; J2919; J3475; Q9967